=== PATIENT | male | born 1965 | race Caucasian/White ===

== ENCOUNTER 2018-10-29 09:47 | Day surgery (SDC) | payer OTHER ==
[~2018-10-29] VITALS: Ht 175.3 cm; Wt 104.0 kg
[~2018-10-29 09:47] MED LIST: LISI20 PO; TADA10TA PO
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
== END 2018-10-29 12:29 | disposition home or self-care (01) ==
LOC: ORSCSDS 09:47 → ORSCMMR 14:00
PROVIDERS: Student in an Organized Health Care Education/Training Program
PROC: 0DBF8ZX Excision of Right Large Intestine, Via Natural or Artificial Opening Endoscopic, Diagnostic (ICD-10-PCS; principal; 2018-10-29 11:30)
PROC: 0DBE8ZX Excision of Large Intestine, Via Natural or Artificial Opening Endoscopic, Diagnostic (ICD-10-PCS; principal; 2018-10-29 11:30)
DX: Z12.11 Encounter for screening for malignant neoplasm of colon (principal); K63.5 Polyp of colon; K64.8 Other hemorrhoids; I10 Essential (primary) hypertension; G47.33 Obstructive sleep apnea (adult) (pediatric); Z79.899 Other long term (current) drug therapy; Z87.891 Personal history of nicotine dependence
CPT/HCPCS: 88305; J2704; J7120

== ENCOUNTER 2019-11-07 12:10 | Day surgery (SDC) | payer OTHER ==
[~2019-11-07] VITALS: Ht 175.3 cm; Wt 94.3 kg
--- NOTE | 2019-11-07 12:57 | NUR ---
11/07/19 1257 Hue Ohara 2IV ATTEPTS 1BY MA 1 IN RH 1 IN RW VALVE 1 SUCCESSFUL IV IN RFA BY RN PT TOW
== END 2019-11-07 14:30 | disposition home or self-care (01) ==
LOC: ORSCSDS 12:10
PROVIDERS: Student in an Organized Health Care Education/Training Program
PROC: 0DBH8ZX Excision of Cecum, Via Natural or Artificial Opening Endoscopic, Diagnostic (ICD-10-PCS; principal; 2019-11-07 14:00)
PROC: 0DBK8ZX Excision of Ascending Colon, Via Natural or Artificial Opening Endoscopic, Diagnostic (ICD-10-PCS; principal; 2019-11-07 14:00)
PROC: 0DBN8ZX Excision of Sigmoid Colon, Via Natural or Artificial Opening Endoscopic, Diagnostic (ICD-10-PCS; principal; 2019-11-07 14:00)
PROC: 0DBP8ZX Excision of Rectum, Via Natural or Artificial Opening Endoscopic, Diagnostic (ICD-10-PCS; principal; 2019-11-07 14:00)
DX: Z86.010 Personal history of colon polyps (principal); K52.9 Noninfective gastroenteritis and colitis, unspecified; K62.1 Rectal polyp; K64.8 Other hemorrhoids; I10 Essential (primary) hypertension; I25.10 Atherosclerotic heart disease of native coronary artery without angina pectoris; G47.33 Obstructive sleep apnea (adult) (pediatric); Z87.891 Personal history of nicotine dependence; Z79.899 Other long term (current) drug therapy
CPT/HCPCS: 88305; J2704; J7120

== ENCOUNTER 2020-09-21 06:43 | Day surgery (SDC) | payer OTHER ==
[~2020-09-21] VITALS: Ht 175.3 cm; Wt 98.7 kg
[~2020-09-21 06:43] MED LIST changes: +ENTYVIO300 M1 IV
--- NOTE | 2020-09-21 08:42 | NUR ---
09/21/20 0842 Brooklyn Dunlap 2ML OF NACL & 1 ML SPOT MARKER USED WITH BXS.
== END 2020-09-21 09:08 | disposition home or self-care (01) ==
LOC: ORSCSDS 06:43
PROVIDERS: Student in an Organized Health Care Education/Training Program
PROC: 3E0H8KZ Introduction of Other Diagnostic Substance into Lower GI, Via Natural or Artificial Opening Endoscopic (ICD-10-PCS; principal; 2020-09-21 08:00)
PROC: 0DBE8ZX Excision of Large Intestine, Via Natural or Artificial Opening Endoscopic, Diagnostic (ICD-10-PCS; principal; 2020-09-21 08:00)
PROC: 0DBL8ZX Excision of Transverse Colon, Via Natural or Artificial Opening Endoscopic, Diagnostic (ICD-10-PCS; principal; 2020-09-21 08:00)
DX: K50.90 Crohn's disease, unspecified, without complications (principal); D12.3 Benign neoplasm of transverse colon; I10 Essential (primary) hypertension; G47.33 Obstructive sleep apnea (adult) (pediatric); K21.9 Gastro-esophageal reflux disease without esophagitis; Z79.899 Other long term (current) drug therapy
CPT/HCPCS: 88305; J0330; J0461; J2405; J2704; J7120

== ENCOUNTER 2022-11-23 06:20 | Day surgery (SDC) | payer OTHER ==
[2022-11-23] VITALS (11 sets, daily range): BP systolic 118–144; BP diastolic 56–86
[~2022-11-23] VITALS: Ht 175.3 cm; Wt 106.1 kg
--- NOTE | 2022-11-23 07:30 | NUR ---
Ambulatory in Day Surgery History, Chart, Medications and Allergies reviewed before start of procedure.Pre-Op teaching done. Pt verbalizes understanding. Patient confirms NPO status and agrees with scheduled surgery. Patient States Post-Procedure ride home has been arranged.
--- NOTE | 2022-11-23 10:59 | NUR ---
DISCHARGE NOTE PT A&OX4, BREATHING RA, ICE TO ABDOMEN, NO ACUTE CONCERNS. PT DRESSING INDEPENDENTLY C RN AT BEDSIDE. Discharge instructions reviewed with patient. Patient verbalizes understanding. Copy given to patient to take home. Dressing to procedure site clean, dry, intact with no visible drainage, swelling, erythema or bruising noted. Discharged via wheelchair to private car for ride home.
== END 2022-11-23 11:00 | disposition home or self-care (01) ==
LOC: ORSCMMR 06:20 → ORD 08:00 → ORSCMMR 08:00
PROVIDERS: Surgery
PROC: 0WUF4JZ Supplement Abdominal Wall with Synthetic Substitute, Percutaneous Endoscopic Approach (ICD-10-PCS; principal; 2022-11-23 08:00)
DX: K42.0 Umbilical hernia with obstruction, without gangrene (principal); I10 Essential (primary) hypertension; G47.33 Obstructive sleep apnea (adult) (pediatric); Z87.891 Personal history of nicotine dependence; E66.9 Obesity, unspecified; Z68.34 Body mass index [BMI] 34.0-34.9, adult; Z79.899 Other long term (current) drug therapy
CPT/HCPCS: A9270; C1781; J0690; J1885; J2250; J2704; J2795; J3010; J7120

== ENCOUNTER 2024-03-29 09:37 | Day surgery (SDC) | payer OTHER ==
[~2024-03-29] VITALS: Ht 175.3 cm; Wt 104.1 kg
[~2024-03-29 09:37] MED LIST changes: +Lactated Ringer's 1,000 ML IV ONE
[2024-03-29] MEDS ORDERED: Lactated Ringer's 1,000 ML IV ONE (10:18)
[2024-03-29] MEDS ORDERED: propofoL 50 ML IV ONE ×2 (10:52→11:53)
[2024-03-29 12:10] VITALS: BP 125/77
== END 2024-03-29 12:16 | disposition home or self-care (01) ==
LOC: ORSCSDS 09:37
PROVIDERS: Internal Medicine Gastroenterology
PROC: 0DBB8ZX Excision of Ileum, Via Natural or Artificial Opening Endoscopic, Diagnostic (ICD-10-PCS; principal; 2024-03-29 10:45)
PROC: 0DBE8ZX Excision of Large Intestine, Via Natural or Artificial Opening Endoscopic, Diagnostic (ICD-10-PCS; principal; 2024-03-29 10:45)
DX: K50.90 Crohn's disease, unspecified, without complications (principal); K64.8 Other hemorrhoids; I10 Essential (primary) hypertension; G47.33 Obstructive sleep apnea (adult) (pediatric); Z87.891 Personal history of nicotine dependence; Z79.899 Other long term (current) drug therapy
CPT/HCPCS: 88305; J2704; J7120

== ENCOUNTER → 2025-01-09 | Outpatient (CLI) | payer OTHER ==
[~2025-01-09] MED LIST changes: -Lactated Ringer's 1,000 ML IV ONE
[2025-01-09 19:30] LABS: Anion Gap 7.0 mmol/L (3-11); Blood Urea Nitrogen 16.0 mg/dL (8-24); CO2, Blood 27.0 mmol/L (21-32); Calcium, Blood 8.6 mg/dL (8.5-10.1); Chloride, Blood 107.0 mmol/L (98-108); Creatinine, Blood 0.97 mg/dL (0.60-1.20); Glucose, Blood 105.0 mg/dL (70-99); Potassium, Blood 3.8 mmol/L (3.5-5.5); Sodium, Blood 137.0 mmol/L (136-145)
== END ==
LOC: LAB 18:50 → LAB SHORT 18:50
PROVIDERS: Nurse Practitioner Family
DX: I10 Essential (primary) hypertension (principal)
CPT/HCPCS: 80048